=== PATIENT | male | born 1980 | race Two or more races ===

== ENCOUNTER 2019-06-15 11:59 | Emergency (ER) | payer SELFPAY ==
[~2019-06-15] VITALS: Ht 167.6 cm; Wt 63.5 kg
[2019-06-15 12:20] VITALS: BP 176/94
--- NOTE | 2019-06-15 12:20 | NUR ---
ED Nurse Note: Patient walked into ER due to right lai laceration. Stated that was walking upstairs and tripped over. AAO x4, VSS at this time, skin warm to touch. Patient presented with laceration on his right lai, with moderate bleeding.
[2019-06-15] MEDS ORDERED: Lidocaine 1% Plain 30 ml INJ ONE (12:30)
[2019-06-15] MEDS ORDERED: Tetanus/Diptheria/Pertussis IM ONE (12:30)
--- NOTE | 2019-06-15 14:09 | Emergency Room Report ---
History of Present Illness General Chief Complaint: Laceration Source: Patient Present Illness HPI 39-year-old male with no significant past medical history here complaining of a laceration in the right lower extremity as started this morning. Patient was going down the stairs and tells us he fell and cut his right lower extremity with a side of a stair. Patient has a deep laceration to the tendon the right lower extremity below the knee. Patient is not up-to-date with his tetanus shot rating the pain 10 out of 10 without radiation. Denies tingling or numbness at this time. Denies all other injuries, head injury, loss of consciousness. Has not taken medication for symptom relief. Patient has full range of motion of the right lower extremity denies any motor or sensory deficits. Denies chest pain, shortness of breath, palpitation, no other associated symptoms. Allergies: Coded Allergies: No Known Allergies (Unverified , 06/15/19) Patient History Past Medical History: see triage record Past Surgical History: unable to obtain Pertinent Family History: none Immunizations: other - Tdap given today Reviewed Nursing Documentation: PMH: Agreed; PSxH: Agreed Nursing Documentation-PMH Past Medical History: No Stated History Review of Systems All Other Systems: negative except mentioned in HPI Physical Exam Vital Signs Date Time Temp Pulse Resp B/P (MAP) Pulse Ox O2 Delivery O2 Flow Rate FiO2 06/15/19 12:11 98.2 72 18 176/94 (121) 97 Room Air Sp02 EP Interpretation: reviewed, normal General Appearance: no apparent distress, alert, GCS 15, non-toxic Head: normocephalic, atraumatic Eyes: bilateral eye normal inspection, bilateral eye PERRL ENT: hearing grossly normal, normal pharynx, no angioedema, normal voice Neck: full range of motion, supple/symm/no masses Respiratory: chest non-tender, lungs clear, normal breath sounds, no rhonchi, speaking full sentences Cardiovascular #1: regular rate, rhythm, no edema, no murmur Cardiovascular #2: 2+ dorsalis pedis (R), 2+ dorsalis pedis (L) Gastrointestinal: normal inspection, non tender, soft Genitourinary: normal inspection, no CVA tenderness Musculoskeletal: back normal, digits/nails normal, gait/station normal, normal range of motion, non-tender, no calf tenderness, other - Deep laceration right proximal tib-fib into the muscle Neurologic: alert, oriented x3, responsive, motor strength/tone normal, sensory intact, speech normal Psychiatric: normal inspection, judgement/insight normal Skin: laceration - Deep laceration right proximal tib-fib into the muscle and tendon Lymphatic: no adenopathy Procedures Laceration/Wound Repair Laceration/Wound Repair : Consent: Verbal Wound Location: lower extremity - Right proximal tib-fib Wound's Depth, Shape: into muscle Wound Length (cm): 3 Wound Explored: contaminated Betadine Prep?: Yes Anesthesia: 1% Lidocaine Volume Anesthetic (ccs): 10 Wound Debrided: minimal Wound Repaired With: sutures Suture Size/Type: 3:0, nylon Number of Sutures: 23 Layer Closure?: Yes Sterile Dressing Applied?: Yes Splint Applied?: No Sling Applied?: No Patient Tolerated: Well Complications: None Medical Decision Making PA Attestation All my diagnosis and treatment plans were reviewed ad discussed with my supervising physician Dr. Prasad Diagnostic Impression: Primary Impression: Laceration of right lower leg ER Course 39-year-old male with no significant past medical history here complaining of a laceration in the right lower extremity as started this morning. Patient was going down the stairs and tells us he fell and cut his right lower extremity with a side of a stair. Patient has a deep laceration to the tendon the right lower extremity below the knee. Patient is not up-to-date with his tetanus shot rating the pain 10 out of 10 without radiation. Denies tingling or numbness at this time. Denies all other injuries, head injury, loss of consciousness. Has not taken medication for symptom relief. Patient has full range of motion of the right lower extremity denies any motor or sensory deficits. Denies chest pain, shortness of breath, palpitation, no other associated symptoms. Ddx considered but are not limited to : Superficial laceration, deep laceration , tendon involvement with laceration, laceration with foreign body Vital signs: are WNL, pt. is afebrile H&PE are most consistent with: Deep laceration into the muscle right lower extremity ORDERS: Tdap, ibuprofen, Keflex, x-ray of right tib-fib ED INTERVENTIONS: Wound closure DISCHARGE: At this time pt. is stable for d/c to home. Will provide printed patient care instructions, and any necessary prescriptions. Care plan and follow up instructions have been discussed with the patient prior to discharge. Take medication as directed follow-up with primary care provider worsening symptoms return to emergency room sutures to be removed in 7 to 10 days Lidocaine was used for numbing, sutures applied after wound was properly cleaned , propper imaging was ordered prior to closure of wound, nonadhesive dressing was applied, sensation was intact, pt was advised to follow up with pcp in 7-10 days for removal of sutures. Other X-Ray Diagnostic Results Other X-Ray Diagnostic Results : X-Ray ordered: Tib-fib # of Views/Limited Vs Complete: 2 View Indication: Pain EP Interpretation: Yes [facility] Xray: Interpretation reviewed, by supervising MD, and agrees with findings. Interpretation: no dislocation, no soft tissue swelling, no fractures, other - No foreign body Impression: No acute disease Electronically Signed by: Mick Casillas PA-C Last Vital Signs Date Time Temp Pulse Resp B/P (MAP) Pulse Ox O2 Delivery O2 Flow Rate FiO2 06/15/19 12:20 98.2 18 176/94 97 Room Air 06/15/19 12:11 72 Disposition: HOME, SELF-CARE Condition: Stable Scripts Ibuprofen (Ibu) 800 Mg Tablet 800 MG PO TID, #30 TAB Prov: Mick Mcgowan 06/15/19 Cephalexin* (KEFLEX*) 500 Mg Capsule 500 MG ORAL EVERY 6 HOURS for 7 Days, #28 CAP Prov: Mick Mcgowan 06/15/19 Referrals: NOT CHOSEN IPA/,REFERRING (PCP) Patient Instructions: Laceration Care, Adult Additional Instructions: Take medication as directed follow-up with a specialist if you continue to have low sensation of your foot or numbness. Sutures to be removed in 7 to 10 days. Mick Mcgowan Jun 15, 2019 14:09
[2019-06-15] MEDS ORDERED: IBU800 MG PO (14:10)
[2019-06-15] MEDS ORDERED: CEPHALEXIN500 MG ORAL (14:10)
[2019-06-15 14:20] VITALS: BP 176/94
--- NOTE | 2019-06-15 14:20 | NUR ---
ED Nurse Note: Pt cleared by health care Provider for discharge. DC instructions/prescription was given and explained to pt and verbalized understanding of teachings. All medical deviecs such as ID band removed. Pt is AAO x4, ambulatory and left with all personal belongings.
--- NOTE | 2019-06-16 10:44 | Diagnostic Imaging Report ---
Indication: right leg pain Comparison: None Findings: Two views of the right tibia and fibula were obtained. No acute fracture, malalignment, or periosteal reaction are identified. Soft tissues are unremarkable. Impression: Negative examination of the tibia and fibula
== END 2019-06-15 14:20 | disposition home or self-care (01) ==
LOC: EMR 14:07
DX: S81.811A Laceration without foreign body, right lower leg, initial encounter (principal); Z23 Encounter for immunization; W45.8XXA Other foreign body or object entering through skin, initial encounter; Y92.9 Unspecified place or not applicable
CPT/HCPCS: 12032; 73590; 90471; 90715; 99283; J2001